=== PATIENT | female | born 1960 | race Caucasian/White ===

== ENCOUNTER → 2017-07-02 | Outpatient (CLI) | payer OTHER | LOC: CIMAGING 14:30 | PROVIDERS: ATTEND Family Medicine | DX: Z12.31 Encounter for screening mammogram for malignant neoplasm of breast (principal) | CPT/HCPCS: G0202 ==

== ENCOUNTER → 2017-07-09 | Outpatient (CLI) | payer OTHER | LOC: BRMIMAGING 09:54 | PROVIDERS: ATTEND Family Medicine | DX: R92.8 Other abnormal and inconclusive findings on diagnostic imaging of breast (principal) | CPT/HCPCS: 76641-PO; G0204 ==

== ENCOUNTER → 2017-10-16 | Outpatient (CLI) | payer OTHER | LOC: BRMIMAGING 15:03 | PROVIDERS: ATTEND Family Medicine | DX: S92.511A Displaced fracture of proximal phalanx of right lesser toe(s), initial encounter for closed fracture (principal) | CPT/HCPCS: 73630-PO ==

== ENCOUNTER → 2017-12-07 | Outpatient (CLI) | payer OTHER | LOC: BRMIMAGING 15:08 | PROVIDERS: ATTEND Hospitalist | DX: S92.511G Displaced fracture of proximal phalanx of right lesser toe(s), subsequent encounter for fracture with delayed healing (principal) | CPT/HCPCS: 73630-PO ==

== ENCOUNTER → 2018-01-01 | Outpatient (CLI) | payer OTHER | LOC: BRMIMAGING 08:58 | PROVIDERS: ATTEND Hospitalist | DX: R92.8 Other abnormal and inconclusive findings on diagnostic imaging of breast (principal) ==

== ENCOUNTER → 2018-07-24 | Outpatient (CLI) | payer OTHER | LOC: CIMAGING 14:42 | PROVIDERS: ATTEND Hospitalist | DX: Z12.31 Encounter for screening mammogram for malignant neoplasm of breast (principal) ==